=== PATIENT | male | born 1935 | race Caucasian/White ===

== ENCOUNTER 2017-08-18 13:23 | Inpatient (IN) | payer MEDICARE ==
[~2017-08-18] VITALS: Ht 172.7 cm; Wt 87.1 kg
[~2017-08-18 13:23] MED LIST: ASPIRIN EC81 M1 PO; ASPIRIN325 MG PO; TOPROL XL25 MG PO; ZOFRAN4 MG PO
[2017-08-18] MEDS ORDERED: COUMADIN5 MG PO (14:19)
[2017-08-18] MEDS ORDERED: COUMADIN7.5 MG PO (14:19)
[2017-08-18] MEDS ORDERED: VITAMIN C250 MG PO (14:21)
[2017-08-18] MEDS ORDERED: VITAMIN B-1250 MCG PO (14:21)
[2017-08-18] MEDS ORDERED: VITAMIN D31000 UNI2 PO (14:21)
[2017-08-18] MEDS ORDERED: FERROUS SULFAT140 MG PO (14:22)
[2017-08-18] MEDS ORDERED: PROPAFENONE HC150 MG PO (14:26)
[2017-08-18] MEDS ORDERED: ZYRTEC10 MG PO (14:28)
[2017-08-18 15:45] LABS: BASOPHILS 0.1 % (0-2); EOSINOPHILS 0.4 % (0-7); HEMATOCRIT 29.1 % (42.0-54.0); HEMOGLOBIN 9.2 g/dL (13.5-17.5); IMMATURE GRANULOCYTES 0.4 % (0-5); LYMPHOCYTES 7.1 % (15-50); MCH 26.9 pg (26.0-34.0); MCHC 31.6 g/dL (31.0-37.0); MCV 85.1 fL (80.0-100.0); MEAN PLATELET VOLUME 10.5 fL (7.4-10.4); MONOCYTES 15.1 % (2-11); NEUTROPHILS 76.9 % (40-80); PLATELET COUNT 154 10x3/uL (130-400); RBC 3.42 10x6/uL (4.20-6.10); RDW 21.4 % (11.5-14.5); WBC 8.9 10x3/uL (4.8-10.8)
[2017-08-18 15:46] VITALS: BP 137/66
[2017-08-18 15:57] VITALS: BP 137/66; BMI 29.2
[2017-08-18 15:57] LABS: INR 1.77 (0.85-1.17); PROTIME 20.6 SECONDS (11.6-15.0)
[2017-08-18 16:06] LABS: CALCIUM 7.6 mg/dL (8.5-10.1); CARBON DIOXIDE 21.8 mmol/L (21.0-32.0); CREATININE - SERUM 0.5 mg/dL (0.6-1.3); GLUCOSE 127 mg/dL (74-106); UREA NITROGEN 19 mg/dL (7-18); eGFR NON AFRICAN AMERICAN > 90 mL/min (90-120)
[2017-08-18 16:13] LABS: CALC OSMOLALITY 264 mosm/kg (275-300); CHLORIDE - SERUM 99 mmol/L (98-107); POTASSIUM - SERUM 4.3 mmol/L (3.5-5.1); SODIUM 130 mmol/L (136-145)
[2017-08-18 17:34] VITALS: BP 115/71
--- NOTE | 2017-08-18 17:49 | NUR ---
PT RESTING IN BED WITH EYES OPEN CALL LIGHT IN REACH WILL MONITER
--- NOTE | 2017-08-18 19:52 | NUR ---
RESTING IN BED, DENIES NEEDS, A&O, CALL LIGHT IN REACH, BED LOWEST POSITION, WILL CONTINUE TO MONITOR
[2017-08-18 20:00] VITALS: BP 123/67
[2017-08-18 22:26] LABS: BASOPHILS 0 % (0-2); EOSINOPHILS 0.8 % (0-7); HEMATOCRIT 29.1 % (42.0-54.0); HEMOGLOBIN 9.1 g/dL (13.5-17.5); IMMATURE GRANULOCYTES 0.1 % (0-5); LYMPHOCYTES 9.8 % (15-50); MCH 26.5 pg (26.0-34.0); MCHC 31.3 g/dL (31.0-37.0); MCV 84.6 fL (80.0-100.0); MEAN PLATELET VOLUME 10.1 fL (7.4-10.4); MONOCYTES 16.1 % (2-11); NEUTROPHILS 73.2 % (40-80); PLATELET COUNT 159 10x3/uL (130-400); RBC 3.44 10x6/uL (4.20-6.10); RDW 21.7 % (11.5-14.5); WBC 7.9 10x3/uL (4.8-10.8)
[2017-08-19] VITALS: BP 107/54
[2017-08-19 04:00] VITALS: BP 110/54
--- NOTE | 2017-08-19 05:00 | NUR ---
PT RESTING IN BED WITH NO DISTRESS. RESPIRATIONS ARE EVEN AND UNLABORED. SIDE RAILS ARE UP X 2. BED IS IN LOWEST POSITION. CALL LIGHT IS WITHIN REACH.
[2017-08-19 06:13] LABS: BASOPHILS 0 % (0-2); EOSINOPHILS 0.2 % (0-7); HEMATOCRIT 27.6 % (42.0-54.0); HEMOGLOBIN 8.7 g/dL (13.5-17.5); IMMATURE GRANULOCYTES 0.2 % (0-5); LYMPHOCYTES 10.1 % (15-50); MCHC 31.5 g/dL (31.0-37.0); MCV 85.7 fL (80.0-100.0); MONOCYTES 17.4 % (2-11); NEUTROPHILS 72.1 % (40-80); PLATELET COUNT 166 10x3/uL (130-400); RBC 3.22 10x6/uL (4.20-6.10); RDW 22.1 % (11.5-14.5); WBC 6.2 10x3/uL (4.8-10.8)
[2017-08-19 06:22] LABS: CALC OSMOLALITY 268 mosm/kg (275-300); CALCIUM 7.6 mg/dL (8.5-10.1); CARBON DIOXIDE 19.7 mmol/L (21.0-32.0); CHLORIDE - SERUM 103 mmol/L (98-107); GLUCOSE 106 mg/dL (74-106); POTASSIUM - SERUM 4.4 mmol/L (3.5-5.1); SODIUM 134 mmol/L (136-145); UREA NITROGEN 15 mg/dL (7-18); eGFR NON AFRICAN AMERICAN 76 mL/min (90-120)
[2017-08-19 06:34] LABS: INR 1.66 (0.85-1.17); PROTIME 19.5 SECONDS (11.6-15.0)
--- NOTE | 2017-08-19 07:00 | NUR ---
REPORT RECIEVED ASSUMED CARE. PATIENT IN BED WITH IV INTACT. NO COMPLAINTS. CALL LIGHT WITHIN REACH.
[2017-08-19 08:09] VITALS: BP 114/59
[2017-08-19 11:09] VITALS: Ht 172.7 cm; Wt 87.1 kg
[2017-08-19 12:51] VITALS: BP 124/56
[2017-08-19 14:40] LABS: BASOPHILS 0 % (0-2); EOSINOPHILS 1.6 % (0-7); HEMATOCRIT 28.6 % (42.0-54.0); IMMATURE GRANULOCYTES 0.2 % (0-5); MCH 26.6 pg (26.0-34.0); MCHC 31.5 g/dL (31.0-37.0); MCV 84.6 fL (80.0-100.0); MEAN PLATELET VOLUME 10.3 fL (7.4-10.4); MONOCYTES 14.2 % (2-11); PLATELET COUNT 160 10x3/uL (130-400); RBC 3.38 10x6/uL (4.20-6.10); WBC 6.3 10x3/uL (4.8-10.8)
--- NOTE | 2017-08-19 15:30 | NUR ---
PATIENT TO GET EGD.
--- NOTE | 2017-08-19 16:20 | NUR ---
PATIENT IN ROOM WITH NO COMPLAINTS. IV INTACT. CALL LIGHT WITHIN REACH. NO PROBLEMS AT THIS TIME.
--- NOTE | 2017-08-19 17:33 | NUR ---
PATIENT SITTING UP IN BED EATING AT THIS TIME. IV INTACT. NO COMPLAINTS. CALL LIGHT WITHIN REACH.
[2017-08-19 20:00] VITALS: BP 109/51
[2017-08-19 22:40] LABS: BASOPHILS 0 % (0-2); EOSINOPHILS 4.4 % (0-7); HEMOGLOBIN 9.3 g/dL (13.5-17.5); IMMATURE GRANULOCYTES 0.2 % (0-5); LYMPHOCYTES 13.5 % (15-50); MCH 26.7 pg (26.0-34.0); MCV 86.2 fL (80.0-100.0); MEAN PLATELET VOLUME 10.5 fL (7.4-10.4); MONOCYTES 16.9 % (2-11); PLATELET COUNT 185 10x3/uL (130-400); RBC 3.48 10x6/uL (4.20-6.10); RDW 22.3 % (11.5-14.5); WBC 5.9 10x3/uL (4.8-10.8)
[2017-08-20] VITALS: BP 126/57
[2017-08-20 04:00] VITALS: BP 118/58
[2017-08-20 05:49] LABS: BASOPHILS 0 % (0-2); EOSINOPHILS 5.7 % (0-7); HEMATOCRIT 28.5 % (42.0-54.0); HEMOGLOBIN 8.9 g/dL (13.5-17.5); IMMATURE GRANULOCYTES 0.2 % (0-5); LYMPHOCYTES 10.9 % (15-50); MCH 26.7 pg (26.0-34.0); MCHC 31.2 g/dL (31.0-37.0); MCV 85.6 fL (80.0-100.0); MEAN PLATELET VOLUME 10.2 fL (7.4-10.4); MONOCYTES 14.2 % (2-11); PLATELET COUNT 179 10x3/uL (130-400); RBC 3.33 10x6/uL (4.20-6.10); RDW 22.2 % (11.5-14.5); WBC 5.5 10x3/uL (4.8-10.8)
[2017-08-20 06:07] LABS: CALC OSMOLALITY 276 mosm/kg (275-300); CALCIUM 7.6 mg/dL (8.5-10.1); CARBON DIOXIDE 23.6 mmol/L (21.0-32.0); CHLORIDE - SERUM 106 mmol/L (98-107); CREATININE - SERUM 0.9 mg/dL (0.6-1.3); GLUCOSE 96 mg/dL (74-106); SODIUM 138 mmol/L (136-145); UREA NITROGEN 14 mg/dL (7-18); eGFR NON AFRICAN AMERICAN 86 mL/min (90-120)
[2017-08-20 06:08] LABS: POTASSIUM - SERUM 3.6 mmol/L (3.5-5.1)
[2017-08-20 06:09] LABS: INR 1.76 (0.85-1.17); PROTIME 20.5 SECONDS (11.6-15.0)
--- NOTE | 2017-08-20 07:30 | NUR ---
ASSESSMENT PER FLOW SHEET.PT WITHOUT DISTRESS. PT REMAINS WITHOUT SIGNS OF BLEEDING. IS AT BEDSIDE.CALL LIGHT IN REACH
[2017-08-20 08:11] VITALS: BP 130/62
[2017-08-20] MEDS ORDERED: CARAFATE1 G PO (09:28)
[2017-08-20] MEDS ORDERED: PROTONIX40 MG PO (09:28)
--- NOTE | 2017-08-20 12:14 | NUR ---
DISCHARGE INSTRUCTION WITH PT AND FAMILY,STATED UNDERSTANDING. IV DCD WITH CATH INTACT.
--- NOTE | 2017-08-20 12:25 | NUR ---
LEFT UNIT VIA WHEELCHAIR FOR TRANSPORT HOME
== END 2017-08-20 12:25 | disposition home or self-care (01) | DRG 378 ==
LOC: D.MS 13:23 → OBSVTIME 13:23 → D.MS 13:24
PROVIDERS: Internal Medicine Gastroenterology; ADMIT Family Medicine
PROC: 0DB68ZX Excision of Stomach, Via Natural or Artificial Opening Endoscopic, Diagnostic (ICD-10-PCS; principal; 2017-08-19 15:00)
DX: K29.71 Gastritis, unspecified, with bleeding (principal); K22.10 Ulcer of esophagus without bleeding; D62 Acute posthemorrhagic anemia; R55 Syncope and collapse; R07.9 Chest pain, unspecified; K44.9 Diaphragmatic hernia without obstruction or gangrene; I48.91 Unspecified atrial fibrillation; Z79.01 Long term (current) use of anticoagulants

== ENCOUNTER 2017-09-14 09:28 | Emergency (ER) | payer MEDICARE, OTHER ==
[2017-08-19 11:09] VITALS: BMI 29.2
[~2017-09-14 09:28] MED LIST changes: +CARAFATE1 G PO; +COUMADIN5 MG PO; +COUMADIN7.5 MG PO; +FERROUS SULFAT140 MG PO; +PROPAFENONE HC150 MG PO; +PROTONIX40 MG PO; +VITAMIN B-1250 MCG PO; +VITAMIN C250 MG PO; +VITAMIN D31000 UNI2 PO; +ZYRTEC10 MG PO
== END 2017-09-14 12:55 | disposition home or self-care (01) ==
LOC: D.ER 09:28
DX: M54.5 Low back pain (principal); Z86.79 Personal history of other diseases of the circulatory system; D64.9 Anemia, unspecified; Z79.01 Long term (current) use of anticoagulants

== ENCOUNTER 2017-10-09 11:23 | Emergency (ER) | payer OTHER ==
[2017-08-19 11:09] VITALS: BMI 29.2
[2017-10-09 12:01] LABS: BASOPHILS 0 % (0-2); EOSINOPHILS 0.1 % (0-7); HEMATOCRIT 30.6 % (42.0-54.0); HEMOGLOBIN 9.1 g/dL (13.5-17.5); IMMATURE GRANULOCYTES 0.2 % (0-5); LYMPHOCYTES 4.5 % (15-50); MCHC 29.7 g/dL (31.0-37.0); MCV 87.4 fL (80.0-100.0); MEAN PLATELET VOLUME 8.8 fL (7.4-10.4); MONOCYTES 5.8 % (2-11); NEUTROPHILS 89.4 % (40-80); PLATELET COUNT 249 10x3/uL (130-400); RDW 17.9 % (11.5-14.5)
[2017-10-09 12:10] LABS: APTT 44.3 SECONDS (22.8-39.4); INR 1.96 (0.85-1.17); PROTIME 21.8 SECONDS (11.6-15.0)
[2017-10-09 12:12] LABS: ALBUMIN 2.3 g/dL (3.4-5.0); ANION GAP 12.9 mmol/L (8-16); BILIRUBIN - TOTAL 0.44 mg/dL (0.2-1.3); CALCIUM 8.2 mg/dL (8.5-10.1); CARBON DIOXIDE 27.5 mmol/L (21.0-32.0); CREATININE - SERUM 1.2 mg/dL (0.6-1.3); POTASSIUM - SERUM 4.4 mmol/L (3.5-5.1); PROTEIN - SERUM 5.9 g/dL (6.4-8.2)
== END 2017-10-09 13:45 | disposition home or self-care (01) ==
LOC: D.ER 11:23
PROVIDERS: Emergency Medicine
DX: G62.9 Polyneuropathy, unspecified (principal); Z79.01 Long term (current) use of anticoagulants

== ENCOUNTER 2017-10-18 02:28 | Inpatient (IN) | payer OTHER ==
[2017-10-18] VITALS (15 sets, daily range): BP systolic 87–139; BP diastolic 33–88; Ht 172.7 cm; Wt 88.2 kg
[~2017-10-18] VITALS: Ht 172.7 cm; Wt 88.2 kg
--- NOTE | ~2017-10-18 | OP ---
PATIENT NAME: PAIGE BELLO MEDICAL RECORD: [id number] :35 LOCATION:D.[facility] [id number] ADMISSION DATE:10/18/17 SURGEON: EDDIE JAY MD DATE OF OPERATION: 10/18/2017 PREOPERATIVE DIAGNOSES: 1. Pneumonia. 2. Respiratory distress. 3. Elevated troponin. POSTOPERATIVE DIAGNOSES: 1. Pneumonia. 2. Respiratory distress. 3. Elevated troponin. PROCEDURE: Insertion of right internal jugular triple lumen central venous catheter. SURGEON: Eddie Jay MD BIOFUELS RESEARCH SCIENTIST: None. BLOOD LOSS: Minimal. ANESTHESIA: Local. COMPLICATIONS: None. The risks, possible complications, and alternatives to the procedure were discussed with the patient. He elects to proceed. OPERATIVE COURSE: The patient was seen in his ICU bed. He was positioned in the Trendelenburg position. The right neck was sterilely prepped and draped. A local anesthetic was used to infiltrate skin and subcutaneous tissues at the base of right neck. Right internal jugular vein was percutaneously accessed in an antegrade fashion. A guidewire passed easily. A small skin michelle was accomplished. A vessel dilator was used to dilate subcutaneous tract. A 16-cm triple lumen central venous catheter was inserted to the hub. It was sutured in place times 3. All lumens were flushed easily and aspirated dark, nonpulsatile blood. A stat portable chest x-ray is pending. TRANSINT:[id number] Voice Confirmation ID: [id number] DOCUMENT ID: [id number] EDDIE JAY MD at 0938 CC: [id number] DICTATION DATE: 10/18/171707 SEARCH ANALYST: 10/18/17 1848 DIS IN 10/18/17 [facility] [address] [place] [address]
[2017-10-18 02:47] LABS: HEMATOCRIT 28.2 % (42.0-54.0); HEMOGLOBIN 8.3 g/dL (13.5-17.5); MCH 24.5 pg (26.0-34.0); MCHC 29.4 g/dL (31.0-37.0); MCV 83.2 fL (80.0-100.0); MEAN PLATELET VOLUME 9.4 fL (7.4-10.4); PLATELET COUNT 294 10x3/uL (130-400); RBC 3.39 10x6/uL (4.20-6.10); RDW 18.2 % (11.5-14.5); WBC 20.1 10x3/uL (4.8-10.8)
[2017-10-18 02:53] LABS: ALBUMIN 2.1 g/dL (3.4-5.0); ANION GAP 21.8 mmol/L (8-16); BILIRUBIN - TOTAL 0.66 mg/dL (0.2-1.3); CALCIUM 8.1 mg/dL (8.5-10.1); CARBON DIOXIDE 18.6 mmol/L (21.0-32.0); CREATININE - SERUM 1.5 mg/dL (0.6-1.3); POTASSIUM - SERUM 5.4 mmol/L (3.5-5.1); PROTEIN - SERUM 6.1 g/dL (6.4-8.2)
[2017-10-18 03:01] LABS: LYMPHOCYTES 14 % (15-50); MONOCYTES 1 % (2-11); NEUTROPHILS 81 % (40-80)
[2017-10-18 03:02] LABS: ANISOCYTOSIS 1+; PLATELET ESTIMATE NORMAL; POIKILOCYTOSIS 1+
[2017-10-18 03:09] LABS: MAGNESIUM - SERUM 3.1 mg/dL (1.8-2.4)
[2017-10-18 03:10] LABS: TROPONIN-I 0.238 ng/mL (0.000-0.060)
[2017-10-18 03:46] LABS: INR 3.44 (0.85-1.17); PROTIME 33.9 SECONDS (11.6-15.0)
[2017-10-18 03:47] LABS: D-DIMER-QUANTITATIVE 1.43 ug/mLFEU (0.20-0.54)
[2017-10-18 04:21] LABS: APPEARANCE CLEAR (CLEAR); BILIRUBIN NEGATIVE (NEGATIVE); COLOR DK YELLOW (YELLOW); GLUCOSE NEGATIVE (NEGATIVE); KETONE NEGATIVE (NEGATIVE); NITRITE NEGATIVE (NEGATIVE); PROTEIN 1+ mg/dL (NEGATIVE); UROBILINOGEN NORMAL (NORMAL)
[2017-10-18 04:23] LABS: BACTERIA FEW /hpf (NONE SEEN); EPITHELIAL CELLS 0-5 /hpf (0-5); GRANULAR CAST OCC /lpf (NONE SEEN); HYALINE CAST OCC /lpf (NONE SEEN); RED CELLS - URINE 0-5 /hpf (0-5); WHITE CELLS - URINE 0-5 /hpf (0-5)
[2017-10-18 09:19] LABS: CKMB 0.9 U/L (0.0-3.6); CREATINE KINASE 56 UL (21-232)
[2017-10-18 09:22] LABS: TROPONIN-I 0.696 ng/mL (0.000-0.060)
[2017-10-18 11:24] LABS: APTT 54.3 SECONDS (22.8-39.4)
[2017-10-18 11:26] LABS: BASOPHILS 0 % (0-2); EOSINOPHILS 0 % (0-7); HEMATOCRIT 28.4 % (42.0-54.0); HEMOGLOBIN 8.3 g/dL (13.5-17.5); IMMATURE GRANULOCYTES 0.6 % (0-5); KETONE - SERUM NEGATIVE (NEGATIVE); LYMPHOCYTES 4.4 % (15-50); MCH 24.4 pg (26.0-34.0); MCHC 29.2 g/dL (31.0-37.0); MCV 83.5 fL (80.0-100.0); MEAN PLATELET VOLUME 9.5 fL (7.4-10.4); PLATELET COUNT 206 10x3/uL (130-400); RDW 17.9 % (11.5-14.5); WBC 21.6 10x3/uL (4.8-10.8)
[2017-10-18 11:34] LABS: INR 5.43 (0.85-1.17); PROTIME 48.5 SECONDS (11.6-15.0)
[2017-10-18 11:42] LABS: ALBUMIN 2.1 g/dL (3.4-5.0); ALKALINE PHOSPHATASE 109 U/L (46-116); CARBON DIOXIDE 20.4 mmol/L (21.0-32.0); CHLORIDE - SERUM 99 mmol/L (98-107); PHOSPHOROUS 6.7 mg/dL (2.5-4.9); PROTEIN - SERUM 5.9 g/dL (6.4-8.2); SODIUM 132 mmol/L (136-145); UREA NITROGEN 30 mg/dL (7-18)
[2017-10-18 11:44] LABS: CALC OSMOLALITY 273 mosm/kg (275-300); CREATININE - SERUM 1.9 mg/dL (0.6-1.3); GLUCOSE 149 mg/dL (74-106); eGFR NON AFRICAN AMERICAN 36 mL/min (90-120)
[2017-10-18 11:45] LABS: ALT (SGPT) 2239 U/L (10-68); POTASSIUM - SERUM 6.6 mmol/L (3.5-5.1)
[2017-10-18 17:44] LABS: HEMATOCRIT 31.7 % (42.0-54.0); HEMOGLOBIN 9.4 g/dL (13.5-17.5); INR 6.92 (0.85-1.17); MCHC 29.7 g/dL (31.0-37.0); MCV 84.3 fL (80.0-100.0); MEAN PLATELET VOLUME 9.7 fL (7.4-10.4); PLATELET COUNT 175 10x3/uL (130-400); PROTIME 58.7 SECONDS (11.6-15.0); RBC 3.76 10x6/uL (4.20-6.10); RDW 17.2 % (11.5-14.5); WBC 20.3 10x3/uL (4.8-10.8)
[2017-10-18 17:59] LABS: ALBUMIN 2.1 g/dL (3.4-5.0); ALKALINE PHOSPHATASE 109 U/L (46-116); BILIRUBIN - TOTAL 1.72 mg/dL (0.2-1.3); CALC OSMOLALITY 273 mosm/kg (275-300); CALCIUM 9.8 mg/dL (8.5-10.1); CHLORIDE - SERUM 98 mmol/L (98-107); CKMB 2.2 U/L (0.0-3.6); CREATINE KINASE 97 UL (21-232); CREATININE - SERUM 2.1 mg/dL (0.6-1.3); GLUCOSE 124 mg/dL (74-106); PROTEIN - SERUM 5.9 g/dL (6.4-8.2); SODIUM 132 mmol/L (136-145); UREA NITROGEN 36 mg/dL (7-18); eGFR NON AFRICAN AMERICAN 32 mL/min (90-120)
[2017-10-18 18:13] LABS: LYMPHOCYTES 4 % (15-50); MONOCYTES 4 % (2-11); NEUTROPHILS 92 % (40-80)
[2017-10-18 18:14] LABS: PLATELET ESTIMATE DECREASED
[2017-10-18 18:17] LABS: POIKILOCYTOSIS 1+; POLYCHROMASIA 1+
[2017-10-18 18:29] LABS: TROPONIN-I 1.149 ng/mL (0.000-0.060)
[2017-10-18 18:30] LABS: ALT (SGPT) 4565 U/L (10-68); POTASSIUM - SERUM 6.7 mmol/L (3.5-5.1)
== END 2017-10-18 21:48 | DRG 871 ==
LOC: D.ER 02:28 → D.ICU 07:35
PROVIDERS: Family Medicine; Internal Medicine Pulmonary Disease
PROC: 02HV33Z Insertion of Infusion Device into Superior Vena Cava, Percutaneous Approach (ICD-10-PCS; principal; 2017-10-18)
DX: A41.9 Sepsis, unspecified organism (principal); J18.9 Pneumonia, unspecified organism; I50.21 Acute systolic (congestive) heart failure; I24.8 Other forms of acute ischemic heart disease; R79.89 Other specified abnormal findings of blood chemistry; D46.9 Myelodysplastic syndrome, unspecified; D50.9 Iron deficiency anemia, unspecified; E87.5 Hyperkalemia; Z95.2 Presence of prosthetic heart valve; Z79.01 Long term (current) use of anticoagulants; I48.0 Paroxysmal atrial fibrillation; Z95.0 Presence of cardiac pacemaker